=== PATIENT | male | born 1990 | race Hispanic/Latino ===

== ENCOUNTER 2020-04-10 18:38 | Emergency (ER) | payer SELFPAY ==
[2020-04-10] MEDS ORDERED: XANAX0.25 MG PO (21:23)
[2020-04-10] MEDS ORDERED: AMOXICILLIN500 M2 PO (21:31)
[2020-04-10 21:35] VITALS: BP 118/78
== END 2020-04-10 21:35 | disposition home or self-care (01) | DRG 179 ==
LOC: ED 18:38
DX: U07.1 COVID-19 (principal); J02.0 Streptococcal pharyngitis; F41.9 Anxiety disorder, unspecified